=== PATIENT | male | born 1955 | race Two or more races ===

== ENCOUNTER 2023-07-26 07:25 | Outpatient (CLI) | payer OTHER | END 2023-07-26 07:33 | disposition home or self-care (01) | LOC: TOM 07:25 | PROVIDERS: ATTEND Internal Medicine Gastroenterology | DX: K52.9 Noninfective gastroenteritis and colitis, unspecified (principal); R10.84 Generalized abdominal pain | CPT/HCPCS: 74177; Q9965 ==